=== PATIENT | female | born 1970 | race Asian ===

== ENCOUNTER → 2021-03-04 11:10 | Outpatient (CLI) | payer OTHER, SELFPAY ==
[2021-03-04] MEDS: COVID-19 VACC #1, MRNA(MOD) 100 MCG/0.5 ML VIAL IM (11:16)
== END ==
PROVIDERS: Visit Provider Internal Medicine
DX: Z23 Encounter for immunization (principal)
CPT/HCPCS: 0011A; 91301

== ENCOUNTER → 2021-04-02 10:54 | Outpatient (CLI) | payer OTHER, SELFPAY ==
[2021-04-02] MEDS: COVID-19 VACC #2, MRNA(MOD) 100 MCG/0.5 ML VIAL IM (11:01)
== END ==
PROVIDERS: Visit Provider Internal Medicine
DX: Z23 Encounter for immunization (principal)
CPT/HCPCS: 0012A; 91301